=== PATIENT | male | born 1945 | race Caucasian/White ===

== ENCOUNTER → 2019-10-14 | Outpatient (CLI) | payer MEDICARE, OTHER ==
--- NOTE | 2019-10-14 13:27 | Diagnostic Imaging Report ---
Exam: KUB - 2 views Indication: Urinary tract infection Comparison: None Findings: No radiographically apparent renal calculi. Nonobstructive bowel gas pattern. No free air. No acute osseous injury. 1.9 x 1.1 cm calcific density in the left pelvis, likely a large phlebolith. Impression: No radiographically apparent renal calculi. Calcific density in the left pelvis, likely a prominent phlebolith. Signed by: Reyes Coreas MD on 10/14/2019 1:24 PM
--- NOTE | 2019-10-14 13:56 | Diagnostic Imaging Report ---
EXAM: Renal Ultrasound INDICATION: ^UTI COMPARISON: None TECHNIQUE: Transverse and longitudinal images of the kidneys and bladder were obtained. FINDINGS: Right Kidney: Length: 9.8 cm Appearance: Normal echogenicity. Collecting system: No hydronephrosis Stones: None Cyst/Mass: None Left Kidney: Length: 10.4 cm Appearance: Normal echogenicity. Collecting system: No hydronephrosis Stones: None Cyst/Mass: None Bladder: No mass or calculi. Bilateral ureteral jets visualized. Prevoid volume estimate of 200 cc. Prostate measures 2.8 x 2.3 x 3.4 cm with volume estimate of 11 cc. IMPRESSION: No hydronephrosis or renal calculi. Signed by: Reyes Coreas MD on 10/14/2019 1:53 PM
== END ==
LOC: US 12:29
PROVIDERS: ATTEND Urology
DX: N39.0 Urinary tract infection, site not specified (principal)
CPT/HCPCS: 74018; 76770